=== PATIENT | female | born 1985 | race Caucasian/White ===

== ENCOUNTER 2017-12-26 13:33 | Observation (INO) ==
[2017-12-26] MEDS ORDERED: Ondansetron 4 MG/2 ML VIAL IVP PRN ×2 (15:47→21:25)
[2017-12-26] MEDS ORDERED: Naloxone 0.4 MG/ML INJ IVP PRN ×2 (15:47→21:25)
[2017-12-26] MEDS ORDERED: *HR* Promethazine 25 MG/ML VIAL IVP PRN ×3 (15:47→21:25)
[2017-12-26] MEDS ORDERED: OXYCODONE Oral CONC 10 MG/0.5 ML ORAL.SYG SL PRN ×2 (15:49→21:25)
[2017-12-26] MEDS ORDERED: Piperacillin/Tazobactam 3.375 GM in 0.9 % Sodium Chloride Mini Bag 100 ML IVPB SCH (16:00)
[2017-12-26] MEDS ORDERED: 0.9 % Sodium Chloride 1,000 ML IVC SCH ×2 (16:00→21:25)
--- NOTE | 2017-12-26 17:24 | General Surg History&Physical ---
Date of Encounter: 12/26/17 Time of Encounter: 17:21 Assessment and Plan (1) Leukocytosis Current Visit: Yes Status: Acute The assessment and plan as outlined above was discussed with the patient and/or family members who expressed understanding and agreement. All questions were answered. due to acute appendicitis, was to receive antibiotics at [facility] before transfer - Invanz 1 gm 13:48 Qualifiers: Leukocytosis type: unspecified Qualified Code(s): D72.829 - Elevated white blood cell count, unspecified (2) Acute appendicitis Current Visit: Yes Status: Acute The assessment and plan as outlined above was discussed with the patient and/or family members who expressed understanding and agreement. All questions were answered. discussed with patient and family CT results, PE, and labs she has acute appendicitis, will plan laparoscopic appendectomy, possible open risks and benefits discussed and she wishes to proceed npo, ivfh prn antiemetics prn pain medication Qualifiers: Acute appendicitis type: unspecified acute appendicitis type Qualified Code (s): K35.80 - Unspecified acute appendicitis (3) Nausea and vomiting Current Visit: Yes Status: Acute The assessment and plan as outlined above was discussed with the patient and/or family members who expressed understanding and agreement. All questions were answered. prn antiemetics Qualifiers: Vomiting type: unspecified Vomiting Intractability: non-intractable Qualified Code(s): R11.2 - Nausea with vomiting, unspecified History of Present Illness Chief complaint: abdominal pain, nausea and vomiting HPI: Ms. Stallworth is a 32 year old female who last night started having diffuse crampy abdominal pain. The pain progressively go worse over the next half a day and she began having nausea and vomiting. She had diarrhea several times last night. She had tactile fever. She presented to [facility] ER in [place] and CT scan a/p was done and it showed acute appendicitis. WBC 21.3, Cr wnl. test negative. She requested to be transfered to [place] for surgery. Past Med Surg Social Fam HX - Past Medical History Source: patient Medical history: no medical history Psychiatric history: no psych history - Past Surgical History Surgical History: (x2) - Social History Smoking Status: Current every day smoker Smokeless Tobacco Status: No Alcohol use: none Drug use: none Occupational status: employed - Family History Grandmother History Unknown: Yes Medications and Allergies Melatonin/Pyridoxine HCl (B6) [Melatonin 3 mg Tablet] 1 tab PO HS PRN 12/26/17 [ History] 3 Allergy/AdvReac Type Severity Reaction Status Date / Time No Known Allergies Allergy Verified 12/26/17 15:37 Review of Systems All systems PM: reviewed and no additional remarkable complaints except as stated All systems PM: The remainder of the systems were reviewed and are negative General Surgery Exam Initial Vital Signs Temp Pulse Resp BP Pulse Ox 98.6 F 79 16 99/62 96 12/26/17 16:31 12/26/17 16:31 12/26/17 16:31 12/26/17 16:31 12/26/17 16:31 - General physical appearance well nourished, no distress - Eyes PERRL, normal ocular movement - ENT normal mucosa, normocephalic - Neck trachea midline - Respiratory normal expansion, clear to auscultation - Cardiovascular Cardiovascular exam: Present: RRR - Abdomen Abdomen general surgery: Present: bowel sounds present, soft, tender. Absent: distended, guarding, rebound Abdominal Tenderness: Present: RLQ - Integumentary Integumentary general surgery: Present: warm and dry, no abnormal pigmentation - Neurologic Present: CN 2-12 grossly intact - Musculoskeletal Present: normal posture - Psychiatric Psychiatric general surgery: Present: A&Ox3, speech is normal Results - Labs All other labs normal. - Imaging CT scan - abdomen: report reviewed CT scan - pelvis: report reviewed
[2017-12-26] MEDS ORDERED: *HR* Propofol 200 MG/20 ML VIAL IVP ONE (17:25)
[2017-12-26] MEDS ORDERED: *HR* FentaNYL (PF) 100 MCG/2 ML VIAL ONE (17:25)
[2017-12-26] MEDS ORDERED: Lidocaine -MPF 2% 2 ML VIAL ONE (17:25)
[2017-12-26] MEDS ORDERED: Ondansetron 4 MG/2 ML VIAL ONE (17:25)
[2017-12-26] MEDS ORDERED: Dexamethasone 4 MG/ML VIAL ONE (17:25)
[2017-12-26] MEDS ORDERED: *HR* Succinylcholine 200 MG/10 ML VIAL IVP ONE (17:25)
[2017-12-26] MEDS ORDERED: *HR* Midazolam HCl 2 MG/2 ML VIAL ONE (17:25)
[2017-12-26] MEDS ORDERED: Albuterol 2.5 MG/3 ML NEBULIZER ONE (17:43)
[2017-12-26] MEDS ORDERED: CefOXitin 2,000 MG VIAL ONE (17:49)
--- NOTE | 2017-12-26 17:55 | Anesthesia Evaluation PreOp ---
Date of Encounter: 12/26/17 Time of Encounter: 17:53 - Past History Planned Operation: Lap appy Cardiac History: Denies any Significant Hx Pulmonary History: Smoker [employer] History: Denies Any Significant HX Other Medical History: Denies Any Significant HX Anesthesia History: No Prior Anesthetic Complications, Past Anesthesia (C-S x 2 (one under general), dental procedure under anesthesia) Alcohol Use: none Drug use: none Medications and Allergies Melatonin/Pyridoxine HCl (B6) [Melatonin 3 mg Tablet] 1 tab PO HS PRN 12/26/17 [ History] 3 Allergy/AdvReac Type Severity Reaction Status Date / Time No Known Allergies Allergy Verified 12/26/17 15:37 - Meds/Allergy Pre-op Review Medications Reviewed: Yes Allergies Reviewed: Yes Beta Blockers on Current Med List: No Anesthesia Results - Labs Laboratory Tests 12/26/17 16:25 Urine Test Negative Anesthesia Exam Last Vital Signs Temp 98.6 F 12/26/17 16:31 Pulse 79 12/26/17 16:31 Resp 16 12/26/17 16:31 BP 99/62 12/26/17 16:31 Pulse Ox 96 12/26/17 16:31 Weight: 57 kg NPO (# of Hours): > 8 hrs - HEENT Pupil (Motor): Pupils equal, EOMI Mallampati: I Teeth: Normal Oral Opening: Greater than 3 - [employer] LOC: Oriented [employer] Motor: Normal RUE, Normal LUE, Normal RLE, Normal LLE, Normal Face - Cardiac Rhythm: Regular Murmur: None - Pulmonary Breath Sounds: bilateral Clear Respiratory Effort: Symmetrical Anesthesia Assess/Plan ASA Score: 2 Modified Erica Scale for Level of Consciousness: Cooperative, oriented, and tranquil Anesthetic Plan: General Monitoring Plan: Standard Monitors Recovery Plan: PACU
[2017-12-26] MEDS ORDERED: *HR* OxyCODONE Immed Rel 5 MG TABLET PO PRN (18:01)
[2017-12-26] MEDS ORDERED: *HR* Rocuronium Bromide 50 MG/5 ML VIAL ONE (18:29)
[2017-12-26] MEDS ORDERED: Ketorolac 30 MG/ML VIAL ONE (18:41)
[2017-12-26] MEDS ORDERED: Neostigmine Methylsulfate 3 MG/3 ML SYRINGE ONE (18:42)
--- NOTE | 2017-12-26 19:00 | Operative Note ---
Date of procedure: 12/26/17 Pre-op diagnosis: acute appendicitis Post-op diagnosis: same Procedure: Laparoscopic appendectomy Complications: none immediate Anesthesia: GETA, local Local Anesthetics: 0.5% Sensorcaine HCL SubQ (cc) (29) Surgeon: Steff Rosado Was there an physician assistant psychiatry present: No Estimated blood loss (cc): 5 Specimen: appendix Condition: stable Disposition: PACU Procedure in Detail: The patient was brought into the operating suite and placed supine on the operating table. Sign-in was performed and everyone was in agreement. Anesthesia was induced and patient was endotracheally intubated by anesthesia without incident. An OG tube was placed by anesthesia. The abdomen was prepped and draped in the usual sterile fashion. A timeout was performed and again everyone was in agreement. A supraumbilical incision was made through the skin and the subcutaneous tissue with an 11 blade. Towel clamps were placed on either side of the umbilicus for retraction. S-retractors were used to dissect down to the anterior abdominal wall linea alba fascia. A Veress needle was placed into this incision and a water drop test confirmed placement and the abdomen was insufflated. We then entered the abdomen with the 5 mm 0 degree laparoscope on a 5 mm X-lindsey trocar. The area under entry was visualized and there was no bleeding and no apparent bowel injury. We placed a suprapubic 5 mm port under direct visualization after first incising the skin with an 11 blade. The laparoscope was placed through this and we exchanged the supraumbilical port for a 12 mm port under direct visualization. We then placed another 5 mm port in the left lower quadrant position under direct visualization after first incising the skin with an 11 blade. The patient was placed in slight Trendelenburg left side down position. The cecum was located as was the appendix. The appendix was grasped and retracted anteriorly and caudally with a laparoscopic Efe. A [place] was used to dissect between the mesoappendix and the appendix at the base of the cecum. The mesoappendix was transected with a laparoscopic flex-ex ETS stapler using a white load. The appendix was transected at the base of the cecum with the same stapler utilizing a white load. The appendix was placed in a laparoscopic Endo Catch bag and removed via the supraumbilical incision site. Both staple lines were evaluated and there was no bleeding and both staple lines were intact. The area was irrigated with sterile saline which was then suctioned free from the abdomen. The insufflation was suctioned free from the abdomen and all trochars removed. We closed the abdominal wall at the supraumbilical incision site with an 0 Vicryl [id number] stitch. A 30 cc of 0.5% Marcaine was injected subcutaneously at the 3 port sites. The skin at the two 5 mm port sites was closed with 4-0 Monocryl interrupted subcuticular stitches. The skin at the supraumbilical incision site was closed with a 4-0 Monocryl running subcuticular stitch. Steri-Strips were applied to the wounds. The patient was extubated in the OR and tolerated the procedure well and was taken to PACU after all lap and instrument counts were correct at the end of the case.
--- NOTE | 2017-12-26 19:06 | Discharge Summary ---
<Ama Boyd - Last Filed: 12/27/17 08:12> Orders not resulted at time of discharge: Pending orders 12/26/17 18:56 Surgical Pathology [PTH] Routine Date of Encounter: 12/27/17 Time of Encounter: 08:15 - Discharge Diagnosis (1) Acute appendicitis Priority: Primary Status: Resolved Qualifiers: Acute appendicitis type: unspecified acute appendicitis type Qualified Code (s): K35.80 - Unspecified acute appendicitis (2) Leukocytosis Priority: Secondary Status: Resolved Qualifiers: Leukocytosis type: unspecified Qualified Code(s): D72.829 - Elevated white blood cell count, unspecified (3) Nausea and vomiting Priority: Secondary Status: Resolved Qualifiers: Vomiting type: unspecified Vomiting Intractability: non-intractable Qualified Code(s): R11.2 - Nausea with vomiting, unspecified General Surgery Exam Initial Vital Signs Temp Pulse Resp BP Pulse Ox 98.6 F 79 16 99/62 96 12/26/17 16:31 12/26/17 16:31 12/26/17 16:31 12/26/17 16:31 12/26/17 16:31 - Hospital Course Hospital course: Ms. Stallworth is a 32 year old female - Time Spent with Patient Total time spent providing and/or coordinating discharge services: - Discharge Medications Prescriptions: OxyCODONE/APAP 5/325 [Percocet 5/325 MG] 1 each PO Q4HR PRN 5 Days #25 tablet PRN Reason: Pain Docusate [Colace] 100 mg PO DAILY #30 capsule Home Medications: Docusate [Colace] 100 mg PO DAILY #30 capsule 12/26/17 [Rx] Melatonin/Pyridoxine HCl (B6) [Melatonin 3 mg Tablet] 1 tab PO HS PRN 12/26/17 [ History] OxyCODONE/APAP 5/325 [Percocet 5/325 MG] 1 each PO Q4HR PRN 5 Days #25 tablet [Rx] Allergies/Adverse Reactions: 3 Allergy/AdvReac Type Severity Reaction Status Date / Time No Known Allergies Allergy Verified 12/26/17 15:37 Date of admission: 12/26/17 15:08 Primary care physician: PCP NONE Discharging clinician: Steff Rosado (Alexi Boyd) Anticipated date of discharge: 12/27/17 Labs on day of discharge: Labs from last 24 hours 12/27/17 12/27/17 12/26/17 05:08 05:08 16:25 WBC 12.7 H RBC 4.11 Hgb 12.6 Hct 37.1 MCV 90.3 MCH 30.7 MCHC 34.0 RDW 12.3 Plt Count 272 MPV 9.9 Immature Gran % 0.6 Seg Neutrophils % 78.4 Lymphocytes % 15.8 Monocytes % 5.1 Eosinophils % 0.0 Basophils % 0.1 Neutrophils # 9.9 H Lymphocytes # 2.0 Monocytes # 0.7 Eosinophils # 0.0 Basophils # 0.0 Sodium 137 Potassium 4.0 Chloride 111 H Carbon Dioxide 20 L BUN 7 Creatinine 0.62 Est GFR ( Amer) > 60 Est GFR (Non-Af Amer) > 60 BUN/Creatinine Ratio 11 Glucose 118 H Calculated Osmolality 283 Calcium 8.6 Urine Test Negative - Patient Status Disposition: Home, Self-Care Condition: Good Functional capacity at discharge: independent ambulation Overall status at discharge: patient is progressing back to baseline - Discharge Instructions Instructions: Laparoscopic Appendectomy (DC) Follow Up With: Ama Boyd LEATHER CURRIER [Advanced Practice Nurse] - 01/11/18 2:00 pm (2 week appointment for post op lap appy) Forms: Inpatient Work/School Release Additional Instructions: No lifting more than 20 pounds for 2 weeks. Okay to take a shower in 24 hours. No tub baths or pools for 1 week. Okay to ride in the car wearing a seatbelt and climb steps. No driving until off narcotics for 24 hours and able to react safely Remove Steri-Strips in 1 week Do not take pain medicine/narcotics on an empty stomach it will likely cause nausea and possibly vomiting. If pain medication is too strong okay to break in half - Diet and Activity Activity: increase activity as tolerated Diet: advance to your usual diet <Steff Rosado - Last Filed: 12/27/17 10:05> Orders not resulted at time of discharge: Pending orders 12/26/17 18:56 Surgical Pathology [PTH] Routine 12/27/17 04:00 Basic Metabolic Panel AM 0400 Complete Blood Count [HEME] AM 0400 Date of Encounter: 12/27/17 Time of Encounter: 10:50 - Discharge Diagnosis (1) Leukocytosis Priority: Secondary Status: Resolved Qualifiers: Leukocytosis type: unspecified Qualified Code(s): D72.829 - Elevated white blood cell count, unspecified (2) Acute appendicitis Priority: Primary Status: Resolved Qualifiers: Acute appendicitis type: unspecified acute appendicitis type Qualified Code (s): K35.80 - Unspecified acute appendicitis (3) Nausea and vomiting Priority: Secondary Status: Resolved Qualifiers: Vomiting type: unspecified Vomiting Intractability: non-intractable Qualified Code(s): R11.2 - Nausea with vomiting, unspecified General Surgery Exam Initial Vital Signs Temp Pulse Resp BP Pulse Ox 98.6 F 79 16 99/62 96 12/26/17 16:31 12/26/17 16:31 12/26/17 16:31 12/26/17 16:31 12/26/17 16:31 - General physical appearance well developed, well nourished, no distress - Eyes PERRL, normal ocular movement - ENT normal mucosa, normocephalic - Neck trachea midline - Respiratory normal expansion, clear to auscultation - Cardiovascular Cardiovascular exam: Present: RRR, no murmurs/rubs/gallops - Abdomen Abdomen general surgery: Present: bowel sounds present, soft, tender ( appropriate post op tenderness) - Incision Incision: Present: clean and dry, intact - Integumentary Integumentary general surgery: Present: warm and dry - Neurologic Present: CN 2-12 grossly intact - Musculoskeletal Present: normal posture - Psychiatric Psychiatric general surgery: Present: A&Ox3, speech is normal - Hospital Course Hospital course: Ms. Stallworth is a 32 year old female who presented to [facility] with one day of abdominal pain, nausea or emesis. She had CT which showed acute appendicitis. She was transfered to [place] and underwent an uncomplicated laparoscopic appendectomy. Post op she was started on clears and advance to regular. Pain was controlled with po narcotics. She was discharged home in stable condition. - Time Spent with Patient Total time spent providing and/or coordinating discharge services: Date of admission: 12/26/17 15:08 Primary care physician: PCP NONE Discharging clinician: Steff Rosado Labs on day of discharge: Labs from last 24 hours 12/26/17 16:25 Urine Test Negative - Patient Status Functional capacity at discharge: independent ambulation Overall status at discharge: patient is progressing back to baseline - Diet and Activity Activity: increase activity as tolerated Diet: advance to your usual diet - Attending Attestation I have personally performed a face to face evaluation on this patient. I have reviewed and agree with the care plan. History and Exam by me shows:
--- NOTE | 2017-12-26 19:25 | Anesthesia Evaluation Post Op ---
Date of Encounter: 12/26/17 Time of Encounter: 19:25 - Vital Signs Vital Signs: Last Vital Signs Temp 98.1 F 12/26/17 19:22 Pulse 92 12/26/17 19:22 Resp 18 12/26/17 19:22 BP 106/61 12/26/17 19:22 Pulse Ox 98 12/26/17 19:22 - Lungs Lungs: Clear Ascult./Percussion - Airway Airway: Non-obstructed - Cardiovascular Regular Rate - Mental Status Mental Status: Alert & Oriented, Answers Appropriately - Pain Pain Scale: 3 Pain Scale used: Numeric (1 - 10) (4) - Nausea Vomiting Nausea Vomiting: Not Present - Hydration Hydration: NPO - Discharge PostOp Status: Transfer Patient to floor
[2017-12-26] MEDS ORDERED: *HR* OxyCODONE/APAP 5/325 TABLET PO PRN (21:25)
[2017-12-27] MEDS ORDERED: Piperacillin/Tazobactam 3.375 GM in 0.9 % Sodium Chloride Mini Bag 100 ML IVPB SCH
[2017-12-27 06:12] LABS: Basophils % 0.1 %; Hematocrit 37.1 % (35.3-44.9); Hemoglobin 12.6 g/dL (11.5-15.4); Immature Granulocytes % 0.6 % (0-4); Lymphocytes % 15.8 %; Mean Corpuscular Hemoglobin 30.7 pg (28.0-33.3); Mean Corpuscular Volume 90.3 fL (83.0-100.0); Mean Platelet Volume 9.9 fL (9.4-12.4); Monocytes # 0.7 K/mcL (0.0-1.3); Monocytes % 5.1 %; Neutrophils # 9.9 K/mcL (1.6-8.9); Platelet Count 272 K/mcL (140-400); Red Blood Count 4.11 M/mcL (3.82-4.97); Red Cell Distribution Width 12.3 % (11.5-14.5); Segmented Neutrophils % 78.4 %
[2017-12-27 06:32] LABS: BUN/Creatinine Ratio 11 (6-26); Blood Urea Nitrogen 7 mg/dL (6-20); Calcium 8.6 mg/dL (8.6-10.3); Carbon Dioxide 20 mEq/L (23-29); Chloride 111 mEq/L (98-107); Glucose 118 mg/dL (70-105); Osmolality,Calculated 283 (280-300); Sodium 137 mEq/L (136-145); eGFR For African Americans > 60 (> 60); eGFR For Non-African Americans > 60 (> 60)
[2017-12-27 06:38] VITALS: BP 99/62
== END 2017-12-27 10:06 | disposition home or self-care (01) ==
LOC: 3ANU
PROVIDERS: ADMIT Surgery; ATTEND Surgery